=== PATIENT | male | born 1960 | race Two or more races ===

== ENCOUNTER 2018-07-16 15:32 | Inpatient (IN) | payer BC, OTHER ==
[~2018-07-16] VITALS: Ht 195.6 cm; Wt 73.5 kg
[~2018-07-16 15:32] MED LIST: GLYB5TAB7 PO
[2018-07-16] MEDS ORDERED: IBUP-2030 PO (15:45)
[2018-07-16] MEDS ORDERED: INSU300I3 SQ (15:45)
[2018-07-16] MEDS ORDERED: ASPI-1159 PO (15:45)
[2018-07-16] MEDS ORDERED: LABE200T28 PO (15:45)
[2018-07-16] MEDS ORDERED: EMPA10TA PO (15:45)
[2018-07-16] MEDS ORDERED: PIOG15TA66 PO (15:45)
[2018-07-16] MEDS ORDERED: LISI-604 PO (15:45)
[2018-07-16] MEDS ORDERED: ATOR-2 PO (15:45)
[2018-07-16] MEDS ORDERED: CLONIDINE 0.2MG TABLET PO ONE ×2 (16:15→18:15)
[2018-07-16 16:57] LABS: BASOPHILS % 0.3 % (0.0-2.0); EOSINOPHILS % 2.6 % (0.0-5.0); HEMATOCRIT. 35.2 % (42.0-52.0); HEMOGLOBIN. 12.5 g/dL (14.0-18.0); LYMPHOCYTES % 27.1 % (20.0-50.0); MEAN CORPUSCULAR HEMOGLOBIN 31.2 pg (28.0-32.0); MEAN CORPUSCULAR VOLUME 87.9 fL (80.0-94.0); MEAN PLATELET VOLUME 9.5 fl (7.4-10.4); MONOCYTES % 8.5 % (2.0-8.0); NEUTROPHILS % 61.5 % (40.0-76.0); PLATELET 180 x1000/uL (130-400); RED CELL DISTRIBUTION WIDTH 12.8 % (11.6-14.6)
[2018-07-16 17:02] LABS: CHLORIDE 103 mEq/L (98-107)
[2018-07-16] MEDS ORDERED: ASPIRIN 325MG TABLET PO ONE (17:30)
[2018-07-16] MEDS ORDERED: DEXTROSE 50% WATER 50ML SYRINGE IV PRN ×2 (21:45→23:45)
[2018-07-16] MEDS ORDERED: INSULIN LISPRO (MEDIUM DOSE) 100 UNITS/ML SUBCUT SCH (22:00)
[2018-07-16 22:35] VITALS: BP 161/90
[2018-07-16] MEDS ORDERED: TEMAZEPAM 15MG CAPSULE PO PRN (23:30)
[2018-07-16] MEDS ORDERED: ACETAMINOPHEN 325MG TABLET PO PRN (23:30)
[2018-07-16] MEDS ORDERED: CLONIDINE 0.1MG TABLET PO PRN (23:30)
[2018-07-16] MEDS ORDERED: GLIP5TAB12 MT (23:49)
[2018-07-16] MEDS ORDERED: ASPI-1158 MT (23:50)
[2018-07-17] VITALS: BP 145/86
[2018-07-17] MEDS: LISINOPRIL 20MG TABLET PO SCH ×2 (00:23→08:47)
[2018-07-17] MEDS: METOPROLOL TARTRATE 50MG TABLET PO SCH ×2 (00:23→08:47)
[2018-07-17 01:55] VITALS: BP 161/90
[2018-07-17 04:00] VITALS: BP 133/78
[2018-07-17] MEDS: BLOOD SUGAR DIAGNOSTIC STRIP TEST SCH ×3 (06:06→17:26)
[2018-07-17 06:19] LABS: BASOPHILS % 0.5 % (0.0-2.0); EOSINOPHILS % 3.7 % (0.0-5.0); HEMATOCRIT. 32.6 % (42.0-52.0); HEMOGLOBIN. 11.6 g/dL (14.0-18.0); LYMPHOCYTES % 30.7 % (20.0-50.0); MEAN CORPUSCULAR VOLUME 87.3 fL (80.0-94.0); MONOCYTES % 8.1 % (2.0-8.0); PLATELET 172 x1000/uL (130-400); RED BLOOD CELL COUNT 3.73 mill/uL (4.7-6.1); RED CELL DISTRIBUTION WIDTH 13.1 % (11.6-14.6)
[2018-07-17] MEDS: INSULIN LISPRO 100 UNITS/ML SUBCUT SCH ×3 (06:20→17:15)
[2018-07-17 06:29] LABS: CHLORIDE 104 mEq/L (98-107)
[2018-07-17 06:42] LABS: LDL CHOLESTEROL 144 mg/dL (5-100)
[2018-07-17 06:43] LABS: HDL CHOLESTEROL 49 mg/dL (40-59)
[2018-07-17] MEDS ORDERED: BLOOD SUGAR DIAGNOSTIC STRIP TEST SCH (06:45)
[2018-07-17] MEDS ORDERED: PANTOPRAZOLE 40MG DR TABLET PO SCH (06:45)
[2018-07-17 08:00] VITALS: BP 120/74
[2018-07-17] MEDS: GLIPIZIDE 5MG TABLET PO SCH ×2 (08:46→17:27)
[2018-07-17] MEDS ORDERED: EMPAGLIFLOZIN 10 MG PO SCH (09:00)
[2018-07-17] MEDS ORDERED: ENOXAPARIN 40MG/0.4ML SYR SUBCUT SCH (09:00)
[2018-07-17] MEDS ORDERED: ASPIRIN 81MG TABLET PO SCH (09:00)
[2018-07-17] MEDS ORDERED: AMLODIPINE 5MG TABLET PO SCH (09:30)
[2018-07-17] MEDS ORDERED: INSULIN GLARGINE UD 100 UNITS/ML SYR SUBCUT NR (11:30)
[2018-07-17 14:22] VITALS: BP 134/88
[2018-07-17] MEDS ORDERED: ATORVASTATIN CALCIUM 40MG TABLET PO SCH (21:00)
[2018-07-18] MEDS ORDERED: INSULIN GLARGINE UD 100 UNITS/ML SYR SUBCUT SCH (10:00)
== END 2018-07-17 18:26 | disposition home or self-care (01) | DRG 305 ==
LOC: ER 15:32 → 5WST 19:04 → EDBEDREQ 19:05 → ENRESERV 21:23 → 5WST 23:19
PROVIDERS: ADMIT Internal Medicine; ATTEND Internal Medicine
DX: I16.1 Hypertensive emergency (principal); E11.65 Type 2 diabetes mellitus with hyperglycemia; D64.9 Anemia, unspecified; E78.00 Pure hypercholesterolemia, unspecified; E78.1 Pure hyperglyceridemia; E78.5 Hyperlipidemia, unspecified; I11.9 Hypertensive heart disease without heart failure; Z79.4 Long term (current) use of insulin; Z91.19 Patient's noncompliance with other medical treatment and regimen
CPT/HCPCS: 36415; 71045; 80048; 80061; 82962; 83036; 83880; 84484; 93005; 93306; 99291; J1650; J1815